=== PATIENT | male | born 1990 | race Caucasian/White ===

== ENCOUNTER 2019-04-26 09:11 | Emergency (ER) | payer OTHER, SELFPAY ==
[2019-04-26 09:29] VITALS: BP 101/75; PULSE 81; RESP 18; TEMP 36.7; O2SAT 100
--- NOTE | 2019-04-26 09:36 | ED.URI ---
HPI - URI/Sore Throat General Chief Complaint: Upper Respiratory Infection Stated Complaint: chills aches cough Time Seen by Provider: 04/26/19 09:36 Source: patient and RN notes reviewed History of Present Illness HPI Narrative: Patient is a 28-year-old male that presents the urgent care with complaints of chills, sweats, cough, body aches, sore throat. Patient states is been ongoing for approximately 2 days and someone in his office was recently diagnosed with the flu. Patient denies any [id number] use for symptoms. Denies fever, nausea, vomiting. No other acute complaints. No acute distress noted. Patient read the plan of care. Related Data Home Medications Medication Instructions Recorded Confirmed No Home Medications 04/26/19 04/26/19 Allergies Allergy/AdvReac Type Severity Reaction Status Date / Time No Known Allergies Allergy Verified 04/26/19 09:52 Review of Systems Review of Systems: Narrative: CONSTITUTIONAL: Reports a fever, chills, sweats EYES: Denies visual changes, redness, or discharge. ENT: Reports of sore throat, sinus congestion CARDIOVASCULAR: Denies chest pain, palpitations, or edema. RESPIRATORY: Reports of nonproductive cough GASTROINTESTINAL: Denies abdominal pain, nausea, vomiting, or diarrhea. GENITOURINARY: Denies dysuria or hematuria. SKIN: Denies rash or itching. MUSCULOSKELETAL: Denies back pain, joint pain; reports of body aches NEUROLOGIC: Denies headache, numbness, or weakness. All other systems reviewed are negative, except as documented in HPI. PMFSH Comments At the time of my signature, I reviewed and agree with the nursing past medical, surgical, social, and family history. There is no relevant family history pertinent to the patient complaint. Exam Narrative: Exam Narrative: GENERAL: This is a well-nourished, well-developed patient, in no apparent distress. HEAD: normocephalic, atraumatic. EYES: PERRL. Sclera clear/white. Vision is grossly intact. EARS: External ears normal, auditory canals clear and without drainage, TMs normal without perforation. Hearing grossly intact. NOSE: External nose normal with no obvious nasal discharge, nares without redness, clear rhinorrhea. THROAT: Mucous membranes moist, moderate erythema noted posterior oropharynx with moderate postnasal drainage; torus mandibularis NECK: Neck supple, non-tender without lymphadenopathy CARDIOVASCULAR: Regular rate and rhythm without murmurs, gallops, or rubs. RESPIRATORY: Clear to auscultation. Slightly diminished throughout, equal bilaterally. No wheezes, rales, or rhonchi. SKIN: warm, intact with no suspicious lesions or rash, good texture and turgor. NEURO: awake, alert, and oriented to person, place and time. There were no obvious focal neurologic abnormalities. EXTREMITIES: No clubbing, cyanosis, or edema. Course Vital Signs Vital signs: Vital Signs Temperature 98.0 F 04/26/19 09:29 Pulse Rate 81 04/26/19 09:29 Respiratory Rate 18 04/26/19 09:29 Blood Pressure 101/75 04/26/19 09:29 Pulse Oximetry 100 04/26/19 09:29 Temperature 98.0 F 04/26/19 09:29 Pulse Rate 81 04/26/19 09:29 Respiratory Rate 18 04/26/19 09:29 Blood Pressure 101/75 04/26/19 09:29 Pulse Oximetry 100 04/26/19 09:29 Reviewed MDM - URI/Sore Throat MDM Narrative Medical decision making narrative: Reviewed lab results with the patient. He is aware that strep swab was negative. Educated patient on culture and will call within 72 hours if culture is positive and antibiotics are necessary. Patient is aware that flu swab was negative. Advised patient to treat symptoms with [id number] medication such as Claritin, Flonase, ibuprofen, Tylenol. If you develop any increase in symptoms associated with persistent shortness of breath or wheezing, follow-up immediately. Use humidifier at night. Follow-up with PCP within 2 to 5 days or for worsening symptoms or failure to improve. Differential Polina
== END 2019-04-26 10:10 | disposition home or self-care (01) ==
PROVIDERS: Emergency Provider Nurse Practitioner Family
DX: M27.0 Developmental disorders of jaws (principal); J06.9 Acute upper respiratory infection, unspecified
CPT/HCPCS: 87081; 87804; 87880; 99203; G0463